=== PATIENT | male | born 1945 | race Caucasian/White ===

== ENCOUNTER → 2017-01-29 | Outpatient (CLI) | payer MEDICARE, BC ==
--- NOTE | 2017-01-29 17:35 | CT ---
EXAM DESCRIPTION: Head CLINICAL HISTORY: NORMAL PRESSURE HYDROCEPHALUS COMPARISON: None available TECHNIQUE: Non contrast cranial CT This exam was performed according to our departmental dose-optimization program, which includes automated exposure control, adjustment of the mA and/or kV according to patient size and/or use of iterative reconstruction technique. FINDINGS: Noncontrast imaging of the brain demonstrates a right frontal ventricular shunt in place with the catheter extending through the foramen of Monro and traversing the third ventricle with the tip of the catheter lying in the proximal portion of the aqueduct. Moderate lateral ventriculomegaly is present but significant dilation of either the occipital or temporal horns or effacement of the cortical sulci are sylvian fissures to suggest obstruction and pressure hydrocephalus is not apparent. The bony calvarium is intact except for the nathalie hole anteriorly on the right. Petrous ridges and upper paranasal sinuses are clear. Very little white matter disease is noted except adjacent to the anterior horn of the right lateral ventricle along the course of the ventricular shunt. The fourth ventricle is small and normal in size with large areas of cortical gliosis is not evident. IMPRESSION: 1. Right frontal [employer] shunt in place with the catheter extending through the third ventricle into the proximal aspect of the aqueduct. 2. Mild ventriculomegaly of the lateral ventricles without temporal or occipital horn dilation or other stigmata to suggest significant obstructive hydrocephalus. 3. No intracranial hemorrhage or mass effect or midline shift seen. Electronically signed by: Troy Hoff MD 01/29/2017 5:34 PM CDT
== END | disposition home or self-care (01) ==
LOC: CT 16:55
PROVIDERS: ATTEND General Practice
DX: G91.2 (Idiopathic) normal pressure hydrocephalus (principal)

== ENCOUNTER → 2017-06-08 | Outpatient (CLI) | payer MEDICARE, BC ==
--- NOTE | 2017-06-08 16:38 | CT ---
EXAM DESCRIPTION: Head: Computed Tomography. CLINICAL HISTORY: [facility]AX[facility] COMPARISON: CT scan of the head noncontrast 01/29/2017. TECHNIQUE: Non-helical axial scans through the skull and brain, at 5.0 mm intervals, non-contrast. Axial nonhelical 2.5 mm reconstructions. Coronal and sagittal 2.0 mm reconstructions. This exam was performed according to our departmental dose-optimization program which includes automated exposure control, adjustment of the mA and/or kV according to patient size and/or use of iterative reconstruction technique; to reduce radiation dose to as low as reasonably achievable (ALARA). FINDINGS: No hemorrhage, no mass-effect, and no midline shift. Patient to introduce the right frontal bone coursing through the right frontal lobe, the right lateral ventricle into the third ventricle, and terminates in the aqueduct of [place]. Stable position since the prior study. Lateral ventricle, third ventricle, and fourth ventricle size is stable. Gliosis and encephalomalacia in the right frontal lobe along the track of the shunt is unchanged. No abnormal radiodense material in the brain parenchyma. Vascular calcifications anterior circulation; physiologic calcifications in the pineal gland and choroid plexus. No increased effacement or displacement of the ventricles, CSF spaces, or subdural spaces. No extra axial fluid collection or hemorrhage. No gross abnormalities of the bony calvarium. Included paranasal sinuses and mastoid air cells are well - aerated. IMPRESSION: 1. No hemorrhage, no mass effect, no midline shift. Shunt tube which enters the right frontal bone and right frontal lobe, courses through the right lateral ventricle third ventricle and terminates in the aqueduct of [place] is stable in position since the prior study January 2017. Ventricular size is unchanged. No change in gliosis and encephalomalacia abutting the shunt in the right frontal lobe. Electronically signed by: Sterling Azar MD 06/08/2017 4:37 PM [facility]
== END | disposition home or self-care (01) ==
LOC: CT 13:30
PROVIDERS: ATTEND General Practice
DX: R27.0 Ataxia, unspecified (principal); G91.2 (Idiopathic) normal pressure hydrocephalus; Z98.2 Presence of cerebrospinal fluid drainage device

== ENCOUNTER → 2018-10-29 | Outpatient (CLI) | payer MEDICARE, BC ==
--- NOTE | 2018-10-30 16:32 | MRI ---
MRI right shoulder without contrast INDICATION: Shoulder and arm pain abnormal bone scan TECHNIQUE: Noncontrast MR imaging right shoulder FINDINGS: Severe thinning nearly full-thickness subscapularis tear diffusely with edema/cystic change lesser tuberosity. Ill-defined high-grade partial to full-thickness tear long head bicep proximal most likely full-thickness. Obliterated subacromial space with full-thickness retracted tear supraspinatus into the infraspinatus. Advanced glenohumeral osteoarthrosis. Undersurface erosion of the acromion related to the deficient rotator cuff. Prominent joint fluid and bursal fluid. Diffuse chronic degenerative labral tear. Moderate to severe AC joint osteoarthrosis. Muscle atrophy is up to grade 4 supraspinatus infraspinatus and subscapularis and grade 2-3 teres minor. Partially visualized sclerotic lesion in the proximal humeral diaphysis without hyperintensity on T2 imaging likely benign sclerosis or sequela of infarct/enchondroma. See separate humerus report IMPRESSION: Massive rotator cuff tears with muscle atrophy involving supraspinatus and infraspinatus and subscapularis Proximal long head bicep rupture Advanced glenohumeral osteoarthrosis with diffuse degenerative labral tear Prominent joint fluid and bursal fluid Advanced AC joint arthrosis Proximal humeral lesion sclerotic nonaggressive in appearance on this portion of the exam see separate humerus report Electronically signed by: Luis Christine MD 10/30/2018 4:30 PM CDT
--- NOTE | 2018-10-30 16:36 | MRI ---
MRI right humerus without contrast INDICATION: Increased uptake proximal humerus on recent bone scan October 22 TECHNIQUE: Noncontrast MR imaging right humerus FINDINGS: There is a peripherally sclerotic lesion with internal slight increased signal involving the proximal humeral diaphysis abutting the cortex. This measures approximately 3.5 cm in length. No aggressive bone destruction or soft tissue mass. 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 Advanced osteoarthrosis in the shoulder see separate shoulder report. No aggressive bone destruction noted. This could also be an atypical infarct but this is felt to be less likely due to the eccentric location along the subcortical aspect. No aggressive features. 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
== END ==
LOC: MRI 13:00
PROVIDERS: ATTEND General Practice
DX: M75.101 Unspecified rotator cuff tear or rupture of right shoulder, not specified as traumatic (principal); S46.211A Strain of muscle, fascia and tendon of other parts of biceps, right arm, initial encounter; M19.011 Primary osteoarthritis, right shoulder